=== PATIENT | male | born 1955 | race Asian ===

== ENCOUNTER 2018-02-14 11:38 | Emergency (ER) | payer SELFPAY ==
[~2018-02-14] VITALS: Ht 170.2 cm; Wt 77.3 kg
[~2018-02-14 11:38] MED LIST: METF10004 PO
[2018-02-14] MEDS ORDERED: LINA1TAB PO (11:55)
[2018-02-14] MEDS ORDERED: PREG75 PO (11:55)
[2018-02-14] MEDS ORDERED: INSU3INS5 SQ ×2 (11:55)
[2018-02-14] MEDS ORDERED: CITI500C PO (11:55)
[2018-02-14] MEDS ORDERED: AMLO-511 PO (11:55)
[2018-02-14] MEDS ORDERED: METHI5 PO (11:55)
[2018-02-14] MEDS ORDERED: ATOR10TA84 PO (11:55)
[2018-02-14 11:57] LABS: GLUCOSE,POINT OF CARE 111 MG/DL (70-110)
[2018-02-14 12:13] VITALS: BP 149/72
[2018-02-14] MEDS ORDERED: PERTUSS(ACELL),DIPH,TET VAC/PF 0.5 ML VIAL IM ONE (12:30)
== END 2018-02-14 13:21 | disposition home or self-care (01) ==
LOC: EMS 11:41
DX: S61.451A Open bite of right hand, initial encounter (principal); E11.9 Type 2 diabetes mellitus without complications; R03.0 Elevated blood-pressure reading, without diagnosis of hypertension; Z79.84 Long term (current) use of oral hypoglycemic drugs; Z98.890 Other specified postprocedural states; W54.0XXA Bitten by dog, initial encounter; Y93.89 Activity, other specified; Y92.89 Other specified places as the place of occurrence of the external cause; Y99.8 Other external cause status
CPT/HCPCS: 82962; 90471; 90715; 99283